=== PATIENT | female | born 1970 | race Caucasian/White ===

== ENCOUNTER 2018-04-10 15:13 | Emergency (ER) | payer BC ==
[2018-04-10 15:22] VITALS: BP 127/66
--- NOTE | 2018-04-10 15:47 | UC ---
Laceration HPI - HPI Summary HPI Summary: 47 y/o female presents to the urgent care c/o her dog hit her face and she cut her lower lip w/ her front tooth about 2 hrs ago. Pt states bleeding stop w/ pressure, but when she smiles bleeding returns. Pain is 1/10 and cut is very superficial. Pt is not UTD w/ her tetanus vaccine. Pt denies fever, numbness or tingling sensation over the lips, SOB, chest pain, abdominal pain, N/V/D - History Of Current Complaint Chief Complaint: UCLaceration Stated Complaint: LIP LACERATION Time Seen by Provider: 04/10/18 15:44 Hx Obtained From: Patient Hx Last Menstrual Period: 03/12/18 Laceration Location: Face - mid lower lip laceration Mechanism Of Injury: Blunt Trauma Onset/Duration: Sudden Onset, Lasting Hours Pain Intensity: 1 Pain Scale Used: 0-10 Numeric Aggravating Factors: Other: - touch - Allergies/Home Medications Allergies/Adverse Reactions: Allergies Allergy/AdvReac Type Severity Reaction Status Date / Time clarithromycin Allergy Intermediate Unknown Verified 04/10/18 15:24 Reaction Details lidocaine Allergy Intermediate Unknown Verified 04/10/18 15:24 Reaction Details loratadine Allergy Intermediate Unknown Verified 04/10/18 15:24 Reaction Details Penicillins Allergy Intermediate Unknown Verified 04/10/18 15:24 Reaction Details PMH/Surg Hx/FS Hx/Imm Hx Previously Healthy: Yes Psychological History: Anxiety - Surgical History Surgical History: None - Family History Family History: hypothyrodism - Social History Occupation: Employed Full-time Lives: With Family Alcohol Use: None Substance Use Type: None Smoking Status (MU): Heavy Every Day Tobacco Smoker Length of Time of Smoking/Using Tobacco: 25 years - Immunization History Hx Tetanus, Diphtheria Vaccination: No - Pt can't recall when was las tetanus vaccine Review of Systems Constitutional: Negative Skin: Other - lower lip superficial laceration Eyes: Negative ENT: Negative Respiratory: Negative Cardiovascular: Negative Gastrointestinal: Negative Genitourinary: Negative Motor: Negative Neurovascular: Negative Musculoskeletal: Negative Neurological: Negative Psychological: Negative Is Patient Immunocompromised?: No All Other Systems Reviewed And Are Negative: Yes Physical Exam - Summary Physical Exam Summary: Vital Signs Reviewed: Yes General: well developed, well nourished female sitting in the examining table w/ o any apparent distress Eye Exam: Normal Eyes: Positive: Conjunctiva Clear - PERRLA, EOMI, fundi grossly normal ENT: Positive: Normal ENT inspection, Hearing grossly normal, Pharynx normal, TMs normal Neck: Positive: Supple, Nontender, No Lymphadenopathy Respiratory: Positive: Chest non-tender, Lungs clear, Normal breath sounds, No respiratory distress Cardiovascular: Positive: RRR, No Murmur, Pulses Normal, Brisk Capillary Refill Abdomen Description: Positive: Nontender, No Organomegaly, Soft. Negative: CVA Tenderness (R), CVA Tenderness (L) Bowel Sounds: Positive: Present Musculoskeletal: Positive: Strength Intact, ROM Intact, No Edema Neurological: Positive: Alert, Muscle Tone Normal Psychological Exam: Normal Skin: Positive: mid lower lip w/ a discrete superficial linear laceration about 0.4cm in size. non bleeding. no foreign body observed. no tenderness to palpation, mild swelling. no vermilom involvement, sensation intact, capillary refill brisk, and pulses WNL. Triage Information Reviewed: Yes Vital Signs: Initial Vital Signs Temp 98.4 F 04/10/18 15:17 Pulse 84 04/10/18 15:17 Resp 18 04/10/18 15:17 BP 127/66 04/10/18 15:17 Pulse Ox 100 04/10/18 15:17 Laceration Repair - Laceration Repair 1 Description: Linear - discrete superficial laceration of mid lower lip Laceration Size After Repair: Length (cm) - 0.4cm Modified For Repair: No Cleansing Completed Via Routine Prep: Yes Closure Material: SteriStrips - 3 steristrips Closure Method: Single Layer Suture Of: Skin Laceration Course/Dx - Course/Dx Course Of Treatment: 47 y/o female presents to the urgent care c/o her dog hit her face and she cut her lower lip w/ her front tooth about 2 hrs ago. Pt states bleeding stop w/ pressure, but when she smiles bleeding returns. Pain is 1/10 and cut is very superficial. Pt is not UTD w/ her tetanus vaccine. Pt denies fever, numbness or tingling sensation over the lips, SOB, chest pain, abdominal pain, N/V/D. Hx obtained. pt w/ a discrete superfical lineas laceration over the mid lower lip, no vermilom involment, about 0.4cm in size on examination. LACERATION PROCEDURE NOTE: . Copious irrigation was done with saline and the wound explored. There was no FB or deep structure injury noted, no bleeding. wound cleaned w/ Iodine swabs. Laceration closed w/ 3 skin adhesive. Pt tolerated the procedure well without adverse effects. Neurovascular intact . Tdap ordered and applied by nurse. Pt advised if any signs of infection develop to immediately return to the urgent care of PCP for further management and treatment. Pt understood and agreed and left the clinic ambulating A&Ox3. - Differential Dx - Laceration/Wound Differental Diagnoses: Abrasion, Avulsion, Dehiscence, Laceration, Puncture Wound Provider Diagnoses: 1- superficial lower lip laceration repair Discharge - Sign-Out/Discharge Documenting (check all that apply): Patient Departure - D/C home All imaging exams completed and their final reports reviewed: No Studies - Discharge Plan Condition: Stable Disposition: HOME Prescriptions: Bacitracin OINTMENT* 1 applic TOPICAL BID #1 tube Patient Education Materials: Acute Wound Care (ED), Facial Laceration (ED) Referrals: Jie Jiménez MD [Primary Care Provider] - Additional Instructions: 1-Please apply Bacitracin topical antibiotic over the wound when steri-strips come off. Keep wound clean and dry 2-Take Ibuprofen or Tylenol PO q6-8hrs prn for pain or swelling. Apply ice over lip to decrease swelling. 3- If you develop fever or redness around your wound please return to the Urgent care or your PCP for further management. - Billing Disposition and Condition Condition: STABLE Disposition: Home
[2018-04-10] MEDS ORDERED: Tetan/Diph/Pertus SYR(Tdap)* 0.5 ML SYR(BOOSTRIX) use SYR IM ONE (16:17)
== END 2018-04-10 16:35 | disposition home or self-care (01) ==
LOC: UCEAST 15:13
DX: S01.511A Laceration without foreign body of lip, initial encounter (principal); W54.1XXA Struck by dog, initial encounter; Y93.9 Activity, unspecified; Y92.9 Unspecified place or not applicable; Z23 Encounter for immunization; Z88.4 Allergy status to anesthetic agent; Z88.1 Allergy status to other antibiotic agents; Z88.0 Allergy status to penicillin; Z88.8 Allergy status to other drugs, medicaments and biological substances; F17.200 Nicotine dependence, unspecified, uncomplicated
CPT/HCPCS: 90715; 99212; G0463